=== PATIENT | female | born 1960 | race Caucasian/White ===

== ENCOUNTER → 2018-04-12 | Outpatient (CLI) | payer BC ==
[2018-04-12 12:37] LABS: BLOOD UREA NITROGEN 17 mg/dl (7-20)
[2018-04-12 12:37] LABS: CREATININE 0.69 mg/dl (0.44-1.00)
[2018-04-12] MEDS: IOHEXOL 300MG/ML 150 ML BTL (13:54)
[2018-04-12] MEDS: SOD CHLORIDE 0.9% 100 ML (13:54)
== END | disposition home or self-care (01) ==
LOC: C/S 11:35
DX: R10.9 Unspecified abdominal pain (principal)
CPT/HCPCS: 74177; 82565; 84520

== ENCOUNTER → 2018-05-04 | Outpatient (CLI) | payer BC ==
[2018-05-04 06:42] LABS: ADD MAN DIFF? NO
[2018-05-04 06:45] LABS: WHITE BLOOD COUNT 7.9 10^3/ul (4.8-10.8)
[2018-05-04 06:45] LABS: BASOPHILS % 0.3 % (0.0-2.0); EOSINOPHILS # 0.1 10^3/ul (0.0-0.5); EOSINOPHILS % 1.6 % (0.0-7.0); HEMATOCRIT 42.8 % (37.0-47.0); HEMOGLOBIN 13.8 g/dl (12.0-16.0); LYMPHOCYTES # 2.3 10^3/ul (0.8-2.9); LYMPHOCYTES % 28.6 % (15.0-51.0); MEAN CORPUSCULAR HEMOGLOBIN 30.5 pg (29.0-33.0); MEAN CORPUSCULAR HGB CONC 32.2 g/dl (32.0-37.0); MEAN CORPUSCULAR VOLUME 94.5 fl (82.0-101.0); MEAN PLATELET VOLUME 10.7 fl (7.4-10.4); MONOCYTE # 0.8 10^3/ul (0.3-0.9); MONOCYTES % 9.6 % (0.0-11.0); NEUTROPHIL # 4.7 10^3/ul (1.6-7.5); NEUTROPHILS % 59.8 % (39.0-77.0); PLATELET COUNT 228 10^3/UL (140-415); RED BLOOD COUNT 4.53 10^6/ul (4.20-5.40); RED CELL DISTRIBUTION WIDTH 11.9 % (11.5-14.5)
[2018-05-04 07:00] LABS: HEMOGLOBIN A1C 5.1 % (0-5.9)
[2018-05-04 07:12] LABS: ANION GAP 11 (8-16); BLOOD UREA NITROGEN 19 mg/dl (7-20); CALCIUM 10.3 mg/dl (8.4-10.2); CARBON DIOXIDE 28 mmol/L (21-31); CHLORIDE 106 mmol/L (97-110); CREATININE 0.72 mg/dl (0.44-1.00); GLUCOSE 94 mg/dl (70-220); MAGNESIUM 1.8 mg/dl (1.7-2.5); POTASSIUM 4.2 mmol/L (3.5-5.1); SODIUM 141 mmol/L (135-144)
[2018-05-04 07:19] LABS: INR 1.03; PROTIME 13.6 Sec (11.9-14.9); PT RATIO 1.1
[2018-05-04 07:21] LABS: PARTIAL THROMBOPLASTIN TIME 54.9 Sec (25.0-35.0)
[2018-05-04 07:29] LABS: FREE T4 (FREE THYROXINE) 1.11 ng/dl (0.64-1.79)
[2018-05-04 08:03] LABS: THYROID STIMULATING HORMONE 0.411 MIU/L (0.465-4.680)
== END | disposition home or self-care (01) ==
LOC: LAB 06:12
DX: Z01.818 Encounter for other preprocedural examination (principal)
CPT/HCPCS: 80048; 83036; 83735; 84439; 84443; 85025; 85610; 85730

== ENCOUNTER 2018-05-19 08:27 | Emergency (ER) | payer BC ==
[2018-05-19] MEDS ORDERED: GLUCAGON 1 MG INJ IV (08:57)
== END 2018-05-19 10:04 | disposition home or self-care (01) ==
LOC: FTE 08:27
DX: R09.89 Other specified symptoms and signs involving the circulatory and respiratory systems (principal); E66.9 Obesity, unspecified; Z68.35 Body mass index [BMI] 35.0-35.9, adult
CPT/HCPCS: 70360; 99283-25

== ENCOUNTER → 2019-03-28 | Outpatient (CLI) | payer BC | END | disposition home or self-care (01) | LOC: EKG 11:12 | DX: I48.91 Unspecified atrial fibrillation (principal) | CPT/HCPCS: 93306 ==

== ENCOUNTER → 2019-04-03 | Outpatient (CLI) | payer BC ==
[2019-04-03] MEDS: REGADENOSON 0.4 MG/5 ML SYG (12:43)
== END | disposition home or self-care (01) ==
LOC: NUC 11:15
DX: D68.59 Other primary thrombophilia (principal); I11.0 Hypertensive heart disease with heart failure; I50.30 Unspecified diastolic (congestive) heart failure; G47.33 Obstructive sleep apnea (adult) (pediatric); I48.0 Paroxysmal atrial fibrillation
CPT/HCPCS: 78452; 93017

== ENCOUNTER 2019-04-15 13:14 | Day surgery (SDC) | payer BC ==
[2019-04-12 13:18] LABS: ADD MAN DIFF? NO
[2019-04-12 13:19] LABS: BASOPHIL # 0.1 10^3/ul (0.0-0.1); BASOPHILS % 0.6 % (0.0-2.0); EOSINOPHILS # 0.2 10^3/ul (0.0-0.5); EOSINOPHILS % 1.8 % (0.0-7.0); HEMATOCRIT 47.3 % (37.0-47.0); HEMOGLOBIN 15.1 g/dl (12.0-16.0); LYMPHOCYTES # 2.8 10^3/ul (0.8-2.9); LYMPHOCYTES % 31.6 % (15.0-51.0); MEAN CORPUSCULAR HEMOGLOBIN 30.1 pg (29.0-33.0); MEAN CORPUSCULAR HGB CONC 31.9 g/dl (32.0-37.0); MEAN CORPUSCULAR VOLUME 94.2 fl (82.0-101.0); MEAN PLATELET VOLUME 10.7 fl (7.4-10.4); MONOCYTE # 0.6 10^3/ul (0.3-0.9); NEUTROPHIL # 5.3 10^3/ul (1.6-7.5); NEUTROPHILS % 58.8 % (39.0-77.0); PLATELET COUNT 254 10^3/UL (140-415); RED BLOOD COUNT 5.02 10^6/ul (4.20-5.40); RED CELL DISTRIBUTION WIDTH 12.5 % (11.5-14.5)
[2019-04-12 13:35] LABS: HEMOGLOBIN A1C 4.7 % (0-5.9)
[2019-04-12 13:36] LABS: ALANINE AMINOTRANSFERASE 55 IU/L (13-69); ALBUMIN/GLOBULIN RATIO 1.33; ALKALINE PHOSPHATASE 54 IU/L (42-121); ANION GAP 7 (5-13); ASPARTATE AMINO TRANSFERASE 47 IU/L (15-46); BILIRUBIN,INDIRECT 0.6 mg/dl (0-1.1); BILIRUBIN,TOTAL 0.6 mg/dl (0.2-1.3); BLOOD UREA NITROGEN 19 mg/dl (7-20); CALCIUM 9.9 mg/dl (8.4-10.2); CARBON DIOXIDE 27 mmol/L (21-31); CHLORIDE 106 mmol/L (97-110); CREATININE 0.79 mg/dl (0.44-1.00); Estimated GFR > 60 mL/min (>60); GLUCOSE 100 mg/dl (70-220); POTASSIUM 4.4 mmol/L (3.5-5.1); SODIUM 140 mmol/L (135-144)
[2019-04-12 13:43] LABS: INR 1.11; PROTIME 14.4 Sec (11.9-14.9); PT RATIO 1.1
[2019-04-12 15:20] LABS: PARTIAL THROMBOPLASTIN TIME 36.5 Sec (23.0-35.0)
[~2019-04-15 13:14] MED LIST: NACL 0.9% 3 ML SYG IV
[2019-04-15] MEDS ORDERED: LABETALOL HCL 20MG INJ IV (16:30)
[2019-04-15] MEDS ORDERED: FENTAnyl 50 MCG/ML VIAL IV ×2 (16:30)
[2019-04-15] MEDS ORDERED: EPHEDrine 25 MG/5 ML SYG IV (16:30)
[2019-04-15] MEDS ORDERED: hydrALAzine 20 MG INJ IV (16:30)
[2019-04-15] MEDS ORDERED: ONDANSETRON 4 MG INJ IV (16:30)
== END 2019-04-15 17:30 | disposition home or self-care (01) ==
LOC: SDS 13:14
DX: I48.91 Unspecified atrial fibrillation (principal)
CPT/HCPCS: 80053; 83036; 85025; 85610; 85730; 92960

== ENCOUNTER → 2019-05-17 | Outpatient (CLI) | payer BC ==
[2019-05-17 13:05] LABS: ANION GAP 6 (5-13); BLOOD UREA NITROGEN 16 mg/dl (7-20); CARBON DIOXIDE 29 mmol/L (21-31); CHLORIDE 103 mmol/L (97-110); CREATININE 0.86 mg/dl (0.44-1.00); Estimated GFR > 60 mL/min (>60); GLUCOSE 94 mg/dl (70-220); POTASSIUM 4.5 mmol/L (3.5-5.1); SODIUM 138 mmol/L (135-144)
== END | disposition home or self-care (01) ==
LOC: LAB 12:06
DX: Z01.810 Encounter for preprocedural cardiovascular examination (principal); D68.59 Other primary thrombophilia; I50.30 Unspecified diastolic (congestive) heart failure; I10 Essential (primary) hypertension; E66.9 Obesity, unspecified; G47.33 Obstructive sleep apnea (adult) (pediatric); I48.0 Paroxysmal atrial fibrillation
CPT/HCPCS: 80048

== ENCOUNTER → 2019-05-22 | Outpatient (CLI) | payer BC ==
[~2019-05-22] MED LIST changes: +IOHEXOL 100 ML; -NACL 0.9% 3 ML SYG IV; +SOD CHLORIDE 0.9% 100 ML
== END | disposition home or self-care (01) ==
LOC: C/S 08:07
DX: I48.91 Unspecified atrial fibrillation (principal)
CPT/HCPCS: 75574